=== PATIENT | male | born 1940 | race Caucasian/White ===

== ENCOUNTER 2016-03-30 14:27 | Emergency (ER) | payer OTHER ==
[2016-03-30 14:44] VITALS: RESP 16
--- NOTE | 2016-03-30 14:45 | CPEKG ---
Heart Rate: 83 RR Interval: 723 P-R Interval: 196 QRSD Interval: 90 QT Interval: 416 QTC Interval: 489 P [place]: 75 QRS [place]: 42 T Wave [place]: 53 EKG Severity - BORDERLINE ECG - EKG Impression: SINUS RHYTHM Electronically Signed By: Georgi Scott 30-Mar-2016 16:39:58
[2016-03-30] MEDS ORDERED: NS 500 ML IV ONE (14:50)
--- NOTE | 2016-03-30 15:14 | EDPHY ---
H & P Stated Complaint: syncope Time Seen by Provider: 03/30/16 14:27 HPI/ROS: CHIEF COMPLAINT: Syncope HISTORY OF PRESENT ILLNESS: The patient presents to the ED with an episode of syncope after a meal today. The patient was reportedly at a restaurant and went to stand up when he developed syncopal episode. The patient did not sustain a significant fall or injury. Paramedics were called and the patient was brought to the ED for further evaluation. The patient did vomit once in route. The patient reports he has had a history of syncope episodically over the past 9 years that is typically precipitated by eating. The patient reportedly has had an echocardiogram and Holter monitor for this condition. No neuro cardiac etiology has been found. The patient denies any focal numbness or weakness. He denies headache. He denies additional complaints. REVIEW OF SYSTEMS: A comprehensive 10 point review of systems is otherwise negative aside from elements mentioned in the history of present illness. Source: Patient Exam Limitations: No limitations - Personal History Current Tetanus Diphtheria and Acellular Pertussis (TDAP): Unsure - Medical/Surgical History Hx Asthma: No Hx Chronic Respiratory Disease: No Hx Diabetes: No Hx Cardiac Disease: No Hx Renal Disease: No Hx Cirrhosis: No Hx Alcoholism: No Hx HIV/AIDS: No Hx Splenectomy or Spleen Trauma: No - Social History Smoking Status: Never smoked - Physical Exam Exam: General Appearance: Alert, no distress Eyes: Pupils equal and round no pallor or injection ENT, Mouth: Mucous membranes moist Respiratory: There are no retractions, lungs are clear to auscultation Cardiovascular: Regular rate and rhythm, no murmur Gastrointestinal: Abdomen is soft and nontender, no masses, bowel sounds normal Neurological: A&O, normal motor function, normal sensory exam, normal cranial nerves Skin: Warm and dry, no rashes Musculoskeletal: Neck is supple nontender Extremities: symmetrical, full range of motion Constitutional: Initial Vital Signs Temperature (C) 35.7 C L 03/30/16 14:42 Heart Rate 84 03/30/16 14:42 Respiratory Rate 16 03/30/16 14:42 Blood Pressure 122/60 H 03/30/16 14:42 O2 Sat (%) 96 03/30/16 14:42 O2 Delivery Mode Room Air Allergies/Adverse Reactions: No Known Allergies Allergy (Unverified 03/30/16 14:51) Home Medications: Medication Instructions Recorded Finasteride 03/30/16 Lisinopril 03/30/16 Pravastatin Sodium 03/30/16 Medical Decision Making - Diagnostics EKG Interpretation: EKG: Complete interpretation has been separately recorded in the [facility] archive. Summary impression: Sinus rhythm ED Course/Re-evaluation: The patient had an IV established. He received 500 mL of normal saline. His EKG demonstrates a sinus rhythm. The patient has no abnormalities noted in his laboratory testing. He presents to the ED with a fairly well established history of intermittent postprandial syncope. At this point time there is no evidence of an acute stroke, neurologic or cardiovascular explanation of his syncope. He is ambulatory with and in no acute distress. He continues to have a normal neurologic examination. He has had no arrhythmia or hypotension in the ED. At this point time I do feel the patient can safely be discharged home with customary aftercare instructions and return precautions. Differential Diagnosis: Differential diagnosis considered includes arrhythmia, anemia, dehydration, metabolic abnormality, vasovagal episode - Data Points Laboratory Results: Laboratory Results 03/30/16 14:40 03/30/16 14:40 03/30/16 14:40 WBC 7.23 10^3/uL (3.80-9.50) RBC 4.63 10^6/uL (4.40-6.38) Hgb 15.1 g/dL (13.7-17.5) Hct 43.4 % (40.0-51.0) MCV 93.7 fL (81.5-99.8) MCH 32.6 pg (27.9-34.1) MCHC 34.8 g/dL (32.4-36.7) RDW 12.3 % (11.5-15.2) Plt Count 296 10^3/uL (150-400) MPV 9.8 fL (8.7-11.7) Neut % (Auto) 59.9 % (39.3-74.2) Lymph % (Auto) 29.0 % (15.0-45.0) [place] % (Auto) 9.4 % (4.5-13.0) Eos % (Auto) 0.6 % (0.6-7.6) Baso % (Auto) 0.7 % (0.3-1.7) Nucleat RBC Rel Count 0.0 % (0.0-0.2) Absolute Neuts (auto) 4.33 10^3/uL (1.70-6.50) Absolute Lymphs (auto) 2.10 10^3/uL (1.00-3.00) Absolute Monos (auto) 0.68 10^3/uL (0.30-0.80) Absolute Eos (auto) 0.04 10^3/uL (0.03-0.40) Absolute Basos (auto) 0.05 10^3/uL (0.02-0.10) Absolute Nucleated RBC 0.00 10^3/uL (0-0.01) Immature Gran % 0.4 % (0.0-1.1) Immature Gran # 0.03 10^3/uL (0.00-0.10) Sodium 137 mEq/L (134-144) Potassium 3.8 mEq/L (3.5-5.2) Chloride 106 mEq/L (97-110) Carbon Dioxide 16 L mEq/l (22-31) Anion Gap 15 mEq/L (8-16) BUN 14 mg/dL (7-23) Creatinine 1.0 mg/dL (0.7-1.3) Estimated GFR > 60 Glucose 127 H mg/dL (70-100) Calcium 9.4 mg/dL (8.5-10.4) Medications Given: Discontinued Medications Sodium Chloride (Ns) 500 mls @ 0 mls/hr IV ONCE ONE PRN Reason: Wide Open Stop: 03/30/16 14:51 Last Admin: 03/30/16 14:51 Dose: 500 mls Departure - Departure Disposition: Home, Routine, Self-Care Clinical Impression: Syncope Condition: Good Instructions: Syncope (ED) Additional Instructions: 1. Drink plenty of fluids today as mild dehydration may have contributed to your symptoms. 2. Please return to the ED for any recurrent symptoms, chest pain, shortness of breath, numbness, weakness or other concerns.
[2016-03-30 15:22] LABS: % IMMATURE GRANULYOCYTES 0.4 % (0.0-1.1); ABSOLUTE IMMATURE GRANULOCYTES 0.03 10^3/uL (0.00-0.10); ADD DIFF? NO; ADD MORPH? NO; ADD SCAN? NO; ATYPICAL LYMPHOCYTE FLAG 20 (0-99); FRAGMENT RBC FLAG 0 (0-99); HEMATOCRIT 43.4 % (40.0-51.0); HEMOGLOBIN 15.1 g/dL (13.7-17.5); LEFT SHIFT FLG 0 (0-99); LIPEMIA HEMOLYSIS FLAG 90 (0-99); MEAN CELL HEMOGLOBIN 32.6 pg (27.9-34.1); MEAN CELL HEMOGLOBIN CONCENTR. 34.8 g/dL (32.4-36.7); MEAN CELL VOLUME 93.7 fL (81.5-99.8); MEAN PLATELET VOLUME 9.8 fL (8.7-11.7); PLATELET CLUMPS FLAG 0 (0-99); PLATELET COUNT 296 10^3/uL (150-400); RED BLOOD CELL COUNT 4.63 10^6/uL (4.40-6.38); RED CELL DISTRIBUTION WIDTH 12.3 % (11.5-15.2)
[2016-03-30 15:25] LABS: ANION GAP 15 mEq/L (8-16); CALCIUM 9.4 mg/dL (8.5-10.4); CARBON DIOXIDE 16 mEq/l (22-31); CHLORIDE 106 mEq/L (97-110); GLOMERULAR FILTRATION RATE > 60; GLUCOSE 127 mg/dL (70-100); POTASSIUM 3.8 mEq/L (3.5-5.2); SODIUM 137 mEq/L (134-144)
[2016-03-30 16:02] VITALS: BP 120/61; PULSE 90; TEMP 98.2; O2SAT 95
== END 2016-03-30 16:01 | disposition home or self-care (01) ==
DX: R55 Syncope and collapse (principal)